=== PATIENT | female | born 1945 | race Caucasian/White ===

== ENCOUNTER 2021-03-10 08:08 | Outpatient (CLI) | payer OTHER | END 2021-03-10 08:09 | disposition home or self-care (01) | LOC: NUCLEAR 08:08 | PROVIDERS: ATTEND Internal Medicine | DX: I20.9 Angina pectoris, unspecified (principal) | CPT/HCPCS: 78452; 93017; A9500; J0153 ==

== ENCOUNTER 2021-09-22 13:26 | Outpatient (CLI) | payer OTHER | END 2021-09-22 13:29 | disposition home or self-care (01) | LOC: NUCLEAR 13:26 | PROVIDERS: ATTEND Internal Medicine | DX: I82.403 Acute embolism and thrombosis of unspecified deep veins of lower extremity, bilateral (principal) ==

== ENCOUNTER 2022-12-16 18:12 | Emergency (ER) | payer OTHER ==
[~2022-12-16] VITALS: Ht 154.9 cm; Wt 63.5 kg
[2022-12-16] MEDS ORDERED: COZAAR25 MG PO (19:06)
[2022-12-16] MEDS ORDERED: NORVASC2.5 M1 PO (19:07)
== END 2022-12-16 22:20 | disposition home or self-care (01) ==
LOC: ER 18:12
DX: R53.1 Weakness (principal); I10 Essential (primary) hypertension